=== PATIENT | female | born 1955 | race Caucasian/White ===

== ENCOUNTER → 2017-11-16 | Day surgery (SDC) | payer BC ==
[~2017-11-16] MED LIST: ANASTROZOLE1 MG PO; CEFTIN500 MG PO; DIOVAN160 MG PO; DUEXIS 800-26.1 EACH PO; FENTANYL CITRATE/PF 100MCG/2 ML INJ ONE; FEOSOL325 MG PO; GLIMEPIRIDE4 MG PO; INVOKAMET PO; KLOR-CON 88 MEQ PO; LYRICA50 MG; MIDAZOLAM HCL 2 MG/2 ML VIAL ONE; MOBIC15 MG PO; ONGLYZA5 MG PO; OR PHACO EYE KIT ONE; PREOP PHACO EYE KIT ONE; TENORMIN50 MG PO; VITAMIN D250000 UNIT PO; VITAMIN E1000 UNI1 PO; XARELTO20 MG PO; ZOCOR40 MG PO
== END | disposition home or self-care (01) ==
LOC: OR 11:50
PROVIDERS: ATTEND Ophthalmology
DX: H25.12 Age-related nuclear cataract, left eye (principal); E11.9 Type 2 diabetes mellitus without complications; K44.9 Diaphragmatic hernia without obstruction or gangrene; I10 Essential (primary) hypertension; I25.2 Old myocardial infarction; E78.5 Hyperlipidemia, unspecified; I89.0 Lymphedema, not elsewhere classified; E55.9 Vitamin D deficiency, unspecified; N20.0 Calculus of kidney
CPT/HCPCS: 36415; 66984; 82948; J2250; V2788